=== PATIENT | male | born 1995 | race Two or more races ===

== ENCOUNTER 2021-07-30 09:24 | Emergency (ER) | payer SELFPAY ==
[~2021-07-30] VITALS: Ht 177.8 cm; Wt 89.0 kg
[2021-07-30 11:02] LABS: BASOPHILS % 0.4 % (0.0-2.0); EOSINOPHILS % 1.4 % (0.0-5.0); HEMATOCRIT. 46.1 % (42.0-52.0); HEMOGLOBIN. 15.7 g/dL (14.0-18.0); LYMPHOCYTES % 20.1 % (20.0-50.0); MEAN CORPUSCULAR HEMOGLOBIN 28.4 pg (28.0-32.0); MEAN CORPUSCULAR VOLUME 83.1 fL (80.0-94.0); MEAN PLATELET VOLUME 8.1 fl (7.4-10.4); MONOCYTES % 8.6 % (2.0-8.0); NEUTROPHILS % 69.5 % (40.0-76.0); PLATELET 213 x1000/uL (130-400); RED BLOOD CELL COUNT 5.55 mill/uL (4.7-6.1)
[2021-07-30 11:10] LABS: CHLORIDE 109 mEq/L (98-107)
[2021-07-30 11:13] LABS: INR 2.5; PARTIAL THROMBOPLASTIN TIME 64.1 sec (23.4-31.0)
[2021-07-30] MEDS ORDERED: ACETAMINOPHEN 325MG TABLET PO ONE (11:30)
[2021-07-30] MEDS ORDERED: TOPUD MT (12:38)
[2021-07-30] MEDS ORDERED: DIPH25CA83 MT (12:38)
[2021-07-30 13:01] VITALS: BP 129/62
== END 2021-07-30 13:03 | disposition home or self-care (01) ==
LOC: ER 09:24
DX: S00.01XA Abrasion of scalp, initial encounter (principal); R55 Syncope and collapse; R51.9 Headache, unspecified; H11.33 Conjunctival hemorrhage, bilateral; F17.210 Nicotine dependence, cigarettes, uncomplicated; Z79.899 Other long term (current) drug therapy; Y04.0XXA Assault by unarmed brawl or fight, initial encounter; Y93.89 Activity, other specified; Y92.89 Other specified places as the place of occurrence of the external cause; Y99.8 Other external cause status
CPT/HCPCS: 36415; 80053; 85025; 86850; 86900; 99284